=== PATIENT | female | born 1995 | race Caucasian/White ===

== ENCOUNTER → 2020-01-04 08:56 | Outpatient (BNVA) | payer MEDICAID, SELFPAY | PROVIDERS: Family Provider Family Medicine; Visit Provider Psychiatry & Neurology Psychiatry | DX: F32.4 Major depressive disorder, single episode, in partial remission (principal); F15.11 Other stimulant abuse, in remission | CPT/HCPCS: 99204 ==

== ENCOUNTER → 2020-02-03 08:34 | Outpatient (BNVA) | payer MEDICAID, SELFPAY | PROVIDERS: Family Provider Family Medicine; Visit Provider Nurse Practitioner Psychiatric/Mental Health | DX: F32.4 Major depressive disorder, single episode, in partial remission (principal) | CPT/HCPCS: 99212 ==

== ENCOUNTER → 2020-02-24 13:09 | Outpatient (BNVA) | payer MEDICAID, SELFPAY | PROVIDERS: Family Provider Family Medicine; Visit Provider Nurse Practitioner Psychiatric/Mental Health | DX: F15.11 Other stimulant abuse, in remission (principal); F32.5 Major depressive disorder, single episode, in full remission | CPT/HCPCS: 99212 ==

== ENCOUNTER 2020-02-28 05:54 | Inpatient (IN) | payer MEDICAID, SELFPAY ==
[2020-02-27] VITALS (9 sets, daily range): BP systolic 0–143; BP diastolic 0–75; PULSE 90–98; RESP 16; TEMP 36.8; BMI 32.2
[2020-02-27 21:05] LABS: Basophils # 0.1 10^3/uL (0.0-0.1); Basophils % 0.6 %; Eosinophils # 0.2 10^3/uL (0.0-0.8); Eosinophils % 1.7 %; Hematocrit 37.8 % (37.0-47.0); Hemoglobin 12.5 g/dL (11.5-15.3); Lymphocytes # 2.2 10^3/uL (0.8-4.8); Mean Corpuscular HGB Conc 33.1 g/dL (30.0-36.0); Mean Corpuscular Hemoglobin 29.7 pg (28.0-34.0); Mean Corpuscular Volume 89.8 fL (81-99); Mean Platelet Volume 11.6 fL (7.4-10.4); Monocytes # 0.7 10^3/uL (0.2-0.9); Monocytes % 7.8 %; Neutrophils # 6.3 10^3/uL (1.8-7.7); Neutrophils % 66.4 %; Nucleated Red Blood Cells % 0 %; Platelet Count 244 10^3/cmm (130-400); Red Blood Count 4.21 10^6/uL (4.1-5.3); White Blood Count 9.5 10^3/uL (4.0-10.0)
[2020-02-27] MEDS: miSOPROStol 100 mcg tablet 25 MCG VAGINAL (21:41)
[2020-02-28] VITALS (22 sets, daily range): BP systolic 113–154; BP diastolic 56–87; PULSE 70–103; RESP 16–18; TEMP 36.7–36.9; O2SAT 97–99
[2020-02-28] MEDS: oxytocin 30 UNIT/500 ML BAG IV (06:39)
[2020-02-28] MEDS: dextrose 5%-lactated ringers 1,000 ML 125 ML IV (06:40)
[2020-02-28 07:43] LABS: Amphetamines Screen Urine Negative (Negative); Barbiturates Screen Urine Negative (Negative); Benzodiazepines Screen Urine Negative (Negative); Cocaine Screen Urine Negative (Negative); Opiate Screen Urine Negative (Negative); PCP Screen Urine Negative (Negative); THC Screen Urine Negative (Negative)
[2020-02-28] MEDS: fentaNYL 50 mcg/mL INJ 2mL IVP (07:46)
--- NOTE | 2020-02-28 08:18 | P.PCNOB_ITS ---
Delivery Note: Date of delivery: February 28, 2020 Pre-Delivery Course: The patient was induced last night using Cytotec due to gestational hypertension. She was placed on Cytotec 25 mcg x 1. An amniotomy was performed this morning. She was placed on Pitocin. She progressed to complete without difficulty. She was GBS negative. Her glucose screen was negative. The remainder of her labs were within normal limits including negative drug screens multiple times. Delivery: DELIVERY: The patient progressed to complete without difficulty. She delivered a female with a weight of 7 pounds 7 ounces with Apgars of 7, 9. The baby was delivered from the SIMA position. The baby's mouth and nose were suctioned at the site of the perineum. The baby was then completely delivered and placed on the mother's abdomen. The cord was then clamped and cut. There was no nuchal cord. There was no meconium. The placenta and 3 vessel cord were delivered intact shortly thereafter. The perineum and vaginal vault were carefully examined. No lacerations were noted. Both the mother and the baby were in stable condition. A&P Assessment and plan (1) 39 weeks gestation of : Status: Acute (2) Gestational hypertension: Status: Acute (3) History of drug use: Status: Acute Coding Level of Care Code Acute Casino Cashier Manager for Chg Fwd Diagnoses 39 weeks gestation of Z3A.39 Gestational hypertension O13.9 History of drug use Z87.898
[2020-02-28] MEDS: docusate sodium 100 mg Capsule PO ×2 (10:08→18:08)
--- NOTE | 2020-02-28 10:40 | PC.NURSE ---
pt up to bathroom, void 200mL, gregg care performed, pad/gown changed. pt then ambulated to room 204 without difficulty. oriented to room/call light, proud parent pack and feeding sheet discussed.
[2020-02-28 20:51] LABS: Hematocrit 36.1 % (37.0-47.0); Hemoglobin 11.9 g/dL (11.5-15.3); Mean Corpuscular Hemoglobin 30.1 pg (28.0-34.0); Mean Corpuscular Volume 91.2 fL (81-99); Mean Platelet Volume 11.8 fL (7.4-10.4); Platelet Count 229 10^3/cmm (130-400); Red Blood Count 3.96 10^6/uL (4.1-5.3); Red Cell Distribution Width 14.1 % (12.1-15.1); White Blood Count 11.2 10^3/uL (4.0-10.0)
[2020-02-29 04:47] VITALS: BP 125/77; PULSE 70; RESP 18; TEMP 36.7
--- NOTE | 2020-02-29 08:11 | P.DS_ITS ---
Discharge Providers AGRICULTURAL AND FORESTRY SUPERVISOR Date of Admission: 02/28/20 05:54 Date of Discharge: 02/29/20 Attending Provider at Admission: Mahamed Hernandes MD Attending Provider at Discharge: Mahamed Hernandes MD Diagnoses at Discharge Discharge Diagnosis (1) 39 weeks gestation of : Status: Acute (2) Gestational hypertension: Status: Acute (3) History of drug use: Status: Acute Reason for Visit Reason for Visit: INDUCTION Hospital Course Hospital Course: The patient presented to the hospital for induction. She is given Cytotec 25 mcg x 1. An amniotomy was performed. Pitocin was started. She had an unremarkable delivery. Her course was also unremarkable. Her bleeding was reasonable. Her pain was well controlled. She did not breast- feed. Information Peripartum Data: Delivery Method: Vaginal Physical Exam Narrative: EXAM NARRATIVE: The patient is alert. She appears comfortable. Her heart has a regular rate and rhythm with no murmurs appreciated. Lungs are clear to auscultation bilaterally. Her fundus is firm and below the umbilicus. Discharge Data Data Completed and Pending: Labs from last 24 hours 02/28/20 20:20 WBC 11.2 H RBC 3.96 L Hgb 11.9 Hct 36.1 L MCV 91.2 MCH 30.1 MCHC 33.0 RDW 14.1 Plt Count 229 MPV 11.8 H Vitals: Last Vital Signs Temp 98.1 F 02/29/20 04:47 Pulse 70 02/29/20 04:47 Resp 18 02/29/20 04:47 BP 125/77 02/29/20 04:47 Pulse Ox 99 02/28/20 22:00 Discharge Plan Discharge Patient Disposition: Home, Self-Care Condition: Stable Prescriptions: New ibuprofen 800 mg Tablet 800 mg PO TID Qty: 45 RF: 0 Continued prenat.vits,erendira,[id number]-[id number] Tablet 1 tab PO DAILY RF: 0 Discharge Orders: Discharge Order (Routine); Ordered 02/29/20 Ordered By: Mahamed Hernandes Referrals: Mahamed Hernandes MD [Physician] - 6 Weeks Discharge Diet: Usual diet Discharge Activity: Limit activity as instructed Patient Instructions: Depression (GEN), Perineal Care (DC), Breast Care for the Non-breast Feeding Woman (GEN), Vaginal Delivery (DC), OB Discharge Report, OB Food/Drug Interaction Guide, OB Home Care Discharge Attestations AGRICULTURAL AND FORESTRY SUPERVISOR Time Spent in Discharge Care*: less than 30 min Coding Level of Care Code Acute Cooler Service Supervisor for Chg Fwd Diagnoses 39 weeks gestation of Z3A.39 Gestational hypertension O13.9 History of drug use Z87.898
[2020-02-29] MEDS: prenatal vitamin Capsule 1 CAP PO (08:44)
[2020-02-29] MEDS: docusate sodium 100 mg Capsule PO (08:44)
[2020-02-29 10:40] VITALS: BP 142/90; PULSE 65; RESP 16; TEMP 36.6; O2SAT 99
[2020-02-29 10:45] VITALS: BP 142/90; PULSE 65; RESP 16; TEMP 36.6; O2SAT 99
== END 2020-02-29 11:00 | disposition home or self-care (01) | DRG 807 ==
PROVIDERS: Admitting Provider Family Medicine; Family Provider Family Medicine; Visit Provider Family Medicine
DX: O13.4 Gestational [pregnancy-induced] hypertension without significant proteinuria, complicating childbirth (principal); Z37.0 Single live birth; Z3A.39 39 weeks gestation of pregnancy
CPT/HCPCS: 12345; 36415; 59025; 59409; 80306; 85025; 85027; 96375; J3010

== ENCOUNTER → 2020-05-01 09:59 | Outpatient (BNVA) | payer MEDICAID, SELFPAY | PROVIDERS: Family Provider Family Medicine; Visit Provider Nurse Practitioner Psychiatric/Mental Health | DX: F33.9 Major depressive disorder, recurrent, unspecified (principal); F41.1 Generalized anxiety disorder; F15.11 Other stimulant abuse, in remission | CPT/HCPCS: 99212 ==

== ENCOUNTER → 2020-05-25 08:39 | Outpatient (BNVA) | payer MEDICAID, SELFPAY | PROVIDERS: Family Provider Family Medicine; Visit Provider Nurse Practitioner Psychiatric/Mental Health | DX: F41.1 Generalized anxiety disorder (principal); F33.9 Major depressive disorder, recurrent, unspecified; F15.11 Other stimulant abuse, in remission; F33.1 Major depressive disorder, recurrent, moderate | CPT/HCPCS: 99212 ==

== ENCOUNTER → 2020-07-20 08:32 | Outpatient (BNVA) | payer MEDICAID, SELFPAY | PROVIDERS: Family Provider Family Medicine; Visit Provider Nurse Practitioner Psychiatric/Mental Health | DX: F33.9 Major depressive disorder, recurrent, unspecified (principal); F41.1 Generalized anxiety disorder; F15.11 Other stimulant abuse, in remission | CPT/HCPCS: G0463 ==

== ENCOUNTER → 2020-10-12 09:14 | Outpatient (BNVA) | payer BC, SELFPAY | PROVIDERS: Family Provider Family Medicine; Visit Provider Nurse Practitioner Psychiatric/Mental Health | DX: F41.1 Generalized anxiety disorder (principal); F15.11 Other stimulant abuse, in remission; F32.4 Major depressive disorder, single episode, in partial remission | CPT/HCPCS: 99213 ==

== ENCOUNTER 2023-08-29 09:18 | Emergency (ER) | payer BC, MEDICAID, SELFPAY ==
[2023-08-29 09:24] VITALS: BP 144/100; PULSE 140; RESP 18; TEMP 36.5; O2SAT 96; BMI 32.5
--- NOTE | 2023-08-29 09:34 | CTR_ITS ---
PROCEDURE INFORMATION: Exam: CT Chest With Contrast; Diagnostic Exam date and time: 08/29/2023 10:39 AM Age: 28 years old Clinical indication: Other: Neck and leg swelling; Patient HX: Post egd and colonoscopy yesterday; Additional info: Neck, leg crepitus post egd/colonoscopy, suspect mucosal tear TECHNIQUE: Imaging protocol: Diagnostic computed tomography of the chest with contrast. Radiation optimization: All CT scans at this facility use at least one of these dose optimization techniques: automated exposure control; mA and/or kV adjustment per patient size (includes targeted exams where dose is matched to clinical indication); or iterative reconstruction. Contrast material: OMNI 350; Contrast volume: 100 ml; Contrast route: INTRAVENOUS (IV); REPORTING DATA: Count of CT and Cardiac NM exams in prior 12 months: This patient has received 0 known CTs and 0 known cardiac nuclear medicine studies in the 12 months prior to the current study. COMPARISON: No relevant prior studies available. RADIATION DOSE METRICS: Total DLP (mGy-cm): 1139.56 FINDINGS: Thyroid: The bilateral thyroid lobes are unremarkable. Lungs: Left lower lobe calcified pulmonary parenchymal granuloma. Right lower lobe superior segment, right upper lobe medial anterior segment, medial superior and inferior segment lingular pulmonary subsegmental atelectasis. Right middle lobe partial/subsegmental atelectasis. Pleural spaces: No pneumothorax. Heart: No cardiomegaly. No pericardial effusion. Mediastinal space: Extensive pneumomediastinum, involving the anterior and middle mediastinum. Lymph nodes: No enlarged lymph nodes. Vasculature: Unremarkable. No aortic aneurysm. Bones/joints: No acute abnormality. No acute fracture. Soft tissues: Bilateral extensive supraclavicular/lower cervical soft tissue emphysema, extending into the right axilla, right periscapular soft tissues and right predominant bilateral posterior paraspinous muscular fascial planes. Also extensive right anterolateral lower chest wall soft tissue emphysema. PROCEDURE INFORMATION: Exam: CT Abdomen And Pelvis With Contrast Exam date and time: 08/29/2023 10:39 AM Age: 28 years old Clinical indication: Other: Neck and leg swelling; Patient HX: Post egd and colonoscopy yesterday; Additional info: Neck, leg crepitus post egd/colonoscopy, suspect mucosal tear TECHNIQUE: Imaging protocol: Computed tomography of the abdomen and pelvis with contrast. Radiation optimization: All CT scans at this facility use at least one of these dose optimization techniques: automated exposure control; mA and/or kV adjustment per patient size (includes targeted exams where dose is matched to clinical indication); or iterative reconstruction. Contrast material: OMNI 350; Contrast volume: 100 ml; Contrast route: INTRAVENOUS (IV); REPORTING DATA: Count of CT and Cardiac NM exams in prior 12 months: This patient has received 0 known CTs and 0 known cardiac nuclear medicine studies in the 12 months prior to the current study. COMPARISON: US OB >= 14 weeks fetus [id number] 11/29/2019 9:19 AM RADIATION DOSE METRICS: Total DLP (mGy-cm): 1139.56 FINDINGS: Liver: Normal. No mass. Gallbladder and bile ducts: Normal. No calcified stones. No ductal dilation. Pancreas: Normal. No ductal dilation. Spleen: Normal. No splenomegaly. Adrenal glands: Normal. No mass. Kidneys and ureters: Normal. No hydronephrosis. Stomach and bowel: Moderate wall thickening of the transverse, descending colon, mild wall thickening of the proximal sigmoid colon. Appendix: The vermiform appendix is normal. Intraperitoneal space: Moderately large pneumoperitoneum. Retroperitoneal space: Right predominant extensive abdominal and pelvic pneumoretroperitoneum. Vasculature: Unremarkable. No abdominal aortic aneurysm. Lymph nodes: No enlarged lymph nodes. Urinary bladder: Unremarkable as visualized. Reproductive: Unremarkable as visualized. Bones/joints: Posterior partial synostosis/pseudoarthrosis of the 7th intercostal space. Mid and lower thoracic spine multilevel mild degenerative disc disease. Chronic large left central L5-S1 disc protrusion with spondylosis. Soft tissues: Extensive right abdominal and pelvic wall soft tissue emphysema extending into the proximal right thigh. CT/CT chest abdpel w/*[id number] IMPRESSION: 1. Extensive pneumomediastinum. 2. Bilateral extensive soft tissue emphysema. 3. Please see the abdomen/pelvis CT report of the same date for additional findings. IMPRESSION: 1. Moderately large pneumoperitoneum. 2. Right predominant pneumoretroperitoneum. 3. Findings consistent with nonspecific colitis. Clinical correlation to determine the specific etiology is recommended. 4. Chronic large left central L5-S1 disc protrusion with spondylosis. 5. Please see the CT chest report of the same date for additional findings.
--- NOTE | 2023-08-29 09:57 | ED_ITS ---
HPI - General Adult 2 General: Chief complaint: General Medical Stated complaint: throat swelling post EGD sent by seven Time Seen by Provider: 08/29/23 09:37 History of Present Illness: Patient presents to the ER complaining of crepitus in her neck and her right lower extremity. These areas are painful. Patient's heart rate approximate [address] Hernandes did a EGD and colonoscopy on her yesterday. He said the EGD was uneventful and the colonoscopy showed severe ulcerative colitis where he took multiple biopsies. He felt that there may be a tear in the mucosal allowing the air to get in her abdomen and then perform subcu emphysema. Patient does state it is hard to take a big deep breath. She did not have any of these complaints yesterday they all started either throughout the night or this morning. Review of Systems 2 General: Reports: 10 or more systems reviewed and unremarkable except in HPI and below PFSH ED 2 PFSH: Medical History Major depressive disorder in partial remission Major depressive disorder, recurrent Major depressive disorder, single episode in full remission Social History Current gender identity: Female Physical Exam 2 Const: COMMON NORMALS: no acute distress, average body habitus, patient oriented x3, no limitations, healthy appearing, alert and well nourished HENMT: COMMON NORMALS: normocephalic, atraumatic, hearing grossly normal bilaterally, external ears normal, Normal external nose present, moist oral mucous membranes and oropharynx normal HEAD & SCALP: normocephalic and atraumatic NOSE: Normal external nose present EXTERNAL EAR: Yes external ears normal Neck/C-Spine: COMMON NORMALS: full ROM, no lymphadenopathy, supple, no meningeal signs, no JVD and Thyroid normal THYROID: Thyroid normal OTHER: Swelling noted bilateral neck. Chest: COMMONS NORMALS: normal inspection of the chest and normal palpation of entire chest wall Resp: COMMON NORMALS: normal respiratory effort, No retractions, No use of accessory muscles and clear to auscultation bilaterally AUSCULTATION: clear to auscultation bilaterally Cardio: COMMON NORMALS: no JVD, regular rhythm, S1 normal heart sound present, S2 normal heart sound present, No gallops present (Cardio), No clicks present (Cardio), No murmurs present (Cardio) and No rub (Cardio); negative for regular rate (Tachycardic) RATE: abnormal rate (Tachycardic) RHYTHM: regular rhythm HEART SOUNDS: S1 normal heart sound present and S2 normal heart sound present GI: COMMON NORMALS: Normal to inspection, nondistended, normoactive bowel sounds present, Soft to palpation, No hepatosplenomegaly present and no masses; negative for non-tender (Mildly diffusely tender) PALPATION: Yes Soft to palpation and Yes No hepatosplenomegaly present Extremity: NARRATIVE EXTREMITY EXAM: Painful to palpate right lower extremity calf region Neuro: COMMON NORMALS: patient oriented x3 SENSORIUM/ORIENTATION: Yes alert MENINGEAL SIGNS: Yes no meningeal signs Course 2 Vital Signs: Vital signs: Vital Signs Temperature 97.7 F 08/29/23 09:24 Pulse Rate 107 H 08/29/23 13:09 Respiratory Rate 18 08/29/23 13:09 Blood Pressure 125/85 08/29/23 13:09 Pulse Oximetry 96 08/29/23 13:09 Oxygen Delivery Me thod Room Air 08/29/23 13:09 MDM - General Adult Medical Decision Making Patient had an EGD and colonoscopy yesterday. Started swelling throughout the night and her abdomen legs and neck. Is thought that they may had a perforation. Patient had lab work done that was essentially benign except elevated procalcitonin 1.84. Patient had a contrasted CT scan of her chest abdomen pelvis that showed extensive pneumomediastinum bilateral extensive soft tissue review emphysema large pneumoperitoneum right predominant pneumoretroperitoneum. Dr. Domingo Curiel was consulted who said this would require extensive surgery and patient would need to go to a university type setting or tertiary level care facility. Patient [facility] The neither place had beds and said we could be put on a wait list. Then we called [facility] we got the same answer. [facility] but was called and talked to the transfer center [facility] we can do ER to ER transfer. The ER Dr Coleman who accepted in transfer. We will start the patient on Cipro and Flagyl because she is allergic to ceftriaxone. Will give the patient fentanyl for pain control.. Failure to general surgeon on-call at [facility] Dr Cortes spoke with me about the extensive pneumoperitoneum and the possible duodenal perforation and thought she may need a Whipple type procedure which they are not able to perform at this time so they gave his recommendations for transfer. Dr. Leyva at [facility] excepted in transfer patient be transferred there. Differential Diagnosis Possible submucosal tear to colon allowing for subcu emphysema Medical Records I reviewed the patient's medical records. Lab Data I reviewed the patient's lab results. 08/29/23 10:45 08/29/23 10:45 Radiology Impressions Chest/Abdomen/Pelvis CT 08/29/23 09:34 IMPRESSION: 1. Extensive pneumomediastinum. 2. Bilateral extensive soft tissue emphysema. 3. Please see the abdomen/pelvis CT report of the same date for additional findings. IMPRESSION: 1. Moderately large pneumoperitoneum. 2. Right predominant pneumoretroperitoneum. 3. Findings consistent with nonspecific colitis. Clinical correlation to determine the specific etiology is recommended. 4. Chronic large left central L5-S1 disc protrusion with spondylosis. 5. Please see the CT chest report of the same date for additional findings. ADDENDUM: 08/29/23 1120 THIS REPORT CONTAINS FINDINGS THAT MAY BE CRITICAL TO PATIENT CARE. The findings were verbally communicated by me to Dr. Darron Hernandez via telephone conference at 11:18 AM PEDIATRIC PHYSICIAN ASSISTANT on 08/29/2023. The findings were acknowledged and understood. Laboratory Results WBC 11.12 10^3/uL (3.29-11.43) 08/29/23 10:45 RBC 5.26 10^6/uL (3.85-5.65) 08/29/23 10:45 Hgb 13.30 g/dL (11.27-16.99) 08/29/23 10:45 Hct 41.8 % (36-47) 08/29/23 10:45 MCV 79.5 fl (85-98) L 08/29/23 10:45 MCH 25.3 pg (27-33) L 08/29/23 10:45 MCHC 31.8 g/dL (30-55) 08/29/23 10:45 RDW 14.6 % (12.1-15.1) 08/29/23 10:45 Plt Count 537 10^3/cmm (157-399) H 08/29/23 10:45 MPV 10.7 fL (7.4-10.4) H 08/29/23 10:45 Neut % (Auto) 71.7 % 08/29/23 10:45 Lymph % (Auto) 16.1 % 08/29/23 10:45 Yancey % (Auto) 6.6 % 08/29/23 10:45 Eos % (Auto) 4.8 % 08/29/23 10:45 Baso % (Auto) 0.5 % 08/29/23 10:45 Neut # (Auto) 7.98 10^3/uL (1.8-7.7) H 08/29/23 10:45 Lymph # (Auto) 1.8 10^3/uL (0.8-4.8) 08/29/23 10:45 Yancey # (Auto) 0.7 10^3/uL (0.2-0.9) 08/29/23 10:45 Eos # (Auto) 0.5 10^3/uL (0.0-0.8) 08/29/23 10:45 Baso # (Auto) 0.1 10^3/uL (0.0-0.1) 08/29/23 10:45 Nucleated RBC % (auto) 0 % 08/29/23 10:45 Nucleated RBCs # 0.0 /100WBC 08/29/23 10:45 Sodium 135 mmol/L (136-145) L 08/29/23 10:45 Potassium 3.5 mmol/L (3.5-5.1) 08/29/23 10:45 Chloride 102 mmol/L (98-107) 08/29/23 10:45 Carbon Dioxide 20 mmol/L (22-29) L 08/29/23 10:45 Anion Gap 16.5 (5-19) 08/29/23 10:45 BUN 11 mg/dL (6-20) 08/29/23 10:45 Creatinine 0.6 mg/dL (0.5-0.9) 08/29/23 10:45 GFR Calculation 118.2 mL/min (90-130) 08/29/23 10:45 Glucose 112 mg/dL (65-115) 08/29/23 10:45 Calculated Osmolality 280 mOsm/kg (285-295) L 08/29/23 10:45 Lactic Acid 1.1 mmol/L (0.5-2.2) 08/29/23 10:45 Calcium 9.5 mg/dL (8.5-10.5) 08/29/23 10:45 Total Bilirubin 0.4 mg/dL (0.15-1.2) 08/29/23 10:45 AST 13 U/L (0-32) 08/29/23 10:45 ALT 15 U/L (0-33) 08/29/23 10:45 Alkaline Phosphatase 124 U/L (35-105) H 08/29/23 10:45 Total Protein 7.6 g/dL (6.6-8.7) 08/29/23 10:45 Albumin 4.0 g/dL (3.5-5.2) 08/29/23 10:45 Globulin 3.6 g/dL (1.3-4.6) 08/29/23 10:45 Procalcitonin 1.84 ng/mL (0-0.5) H 08/29/23 10:45 Urine Color Yellow (Yellow) 08/29/23 09:38 Urine Appearance Sl hazy (CLEAR) A 08/29/23 09:38 Urine pH 5 (5-7) 08/29/23 09:38 Ur Specific [place] 1.020 (1.005-1.030) 08/29/23 09:38 Urine Protein Neg (Negative) 08/29/23 09:38 Urine Glucose (UA) Norm (Normal) 08/29/23 09:38 Urine Ketones 1+ (Negative) H 08/29/23 09:38 Urine Blood Neg (Negative) 08/29/23 09:38 Urine Nitrate Negative (Negative) 08/29/23 09:38 Urine Bilirubin 1+ (Negative) H 08/29/23 09:38 Urine Urobilinogen 1 mg/dL (Negative) H 08/29/23 09:38 Ur Leukocyte Esterase Negative (Negative) 08/29/23 09:38 Urine RBC 0-4 /hpf (0-2) H 08/29/23 09:38 Urine WBC 55-80 /hpf (0-5) H 08/29/23 09:38 Ur Squamous Epith Cells 25-40 /hpf (0-5) H 08/29/23 09:38 Amorphous Sediment Not Reportable 08/29/23 09:38 Urine Bacteria Trace /hpf (NONE) 08/29/23 09:38 Urine Mucus 2+ /hpf 08/29/23 09:38 All radiology interpretation(s) finalized by discharge Discharge Plan Discharge Patient Disposition: Xfer Short-Term Hosp Clinical Impression: Pneumoperitoneum, Pneumoretroperitoneum, Pneumomediastinum, Subcutaneous emphysema, Intestine, perforation Condition: Stable Referrals: Mahamed Hernandes MD [Primary Care Provider] - Coding Level of Care Code ED Promotions Executive Producer for Estephania Robb
[2023-08-29 10:25] LABS: Blood Urine Neg (Negative); Glucose Urine UA Norm (Normal); Ketones Urine 1+ (Negative); Nitrate Urine Negative (Negative); Protein Urine Neg (Negative); Urine Appearance SL Hazy (CLEAR); Urine Color Yellow (Yellow); pH Urine 5 (5-7)
[2023-08-29 10:26] LABS: Add Urine Culture? No; Add Urine Microscopic? YES; Bacteria Urine TRACE /hpf; Bilirubin Urine 1+ (Negative); Leukocyte Esterase Urine Negative (Negative); Mucus Urine 2+ /hpf; RBC Urine 0-4 /hpf (0-2); Squamous Epithelial Cell Urine 25-40 /hpf (0-5); Urobilinogen Urine 1 mg/dL (Negative); WBC Urine 55-80 /hpf (0-5)
[2023-08-29] MEDS: iohexol 350 mg/mL 500 mL Btl (per mL) IV (10:47)
[2023-08-29 11:05] LABS: Basophils # 0.1 10^3/uL (0.0-0.1); Basophils % 0.5 %; Eosinophils # 0.5 10^3/uL (0.0-0.8); Eosinophils % 4.8 %; Hematocrit 41.8 % (36-47); Lymphocytes # 1.8 10^3/uL (0.8-4.8); Lymphocytes % 16.1 %; Mean Corpuscular HGB Conc 31.8 g/dL (30-55); Mean Corpuscular Hemoglobin 25.3 pg (27-33); Mean Corpuscular Volume 79.5 fl (85-98); Mean Platelet Volume 10.7 fL (7.4-10.4); Monocytes # 0.7 10^3/uL (0.2-0.9); Monocytes % 6.6 %; Neutrophils # 7.98 10^3/uL (1.8-7.7); Neutrophils % 71.7 %; Nucleated Red Blood Cells % 0 %; Platelet Count 537 10^3/cmm (157-399); Red Blood Count 5.26 10^6/uL (3.85-5.65); Red Cell Distribution Width 14.6 % (12.1-15.1); White Blood Count 11.12 10^3/uL (3.29-11.43)
[2023-08-29 11:17] LABS: Alanine Aminotransferase 15 U/L (0-33); Alkaline Phosphatase 124 U/L (35-105); Anion Gap 16.5 (5-19); Aspartate Amino Transferase 13 U/L (0-32); Blood Urea Nitrogen 11 mg/dL (6-20); Calcium 9.5 mg/dL (8.5-10.5); Carbon Dioxide 20 mmol/L (22-29); Chloride 102 mmol/L (98-107); Globulin 3.6 g/dL (1.3-4.6); Glomerular Filtration Rate 118.2 mL/min (90-130); Glucose 112 mg/dL (65-115); Lactic Sepsis W/Reflex 1.1 mmol/L (0.5-2.2); Osmolality Calculated 280 mOsm/kg (285-295); Potassium 3.5 mmol/L (3.5-5.1); Sodium 135 mmol/L (136-145); Total Bilirubin 0.4 mg/dL (0.15-1.2); Total Protein 7.6 g/dL (6.6-8.7)
[2023-08-29 11:24] LABS: Procalcitonin 1.84 ng/mL (0-0.5)
[2023-08-29 11:49] VITALS: BP 133/87; PULSE 100; RESP 24; O2SAT 95
[2023-08-29] MEDS: ciprofloxacin 400 MG/200 ML PREMIX 200 MG IV (12:09)
[2023-08-29] MEDS: ondansetron 2 mg/ML SDV 2 mL 4 MG IVP (12:09)
[2023-08-29] MEDS: fentaNYL 50 mcg/mL INJ 2mL IVP (12:09)
[2023-08-29 13:09] VITALS: BP 125/85; PULSE 107; RESP 18; O2SAT 96
[2023-08-29] MEDS: metroNIDAZOLE IV 500 MG/100 ML PREMIX 100 MG IV (13:24)
[2023-08-29 13:33] VITALS: BP 119/81; PULSE 101; RESP 23; O2SAT 98
== END 2023-08-29 13:51 | disposition short-term general hospital (02) ==
PROVIDERS: Emergency Provider Emergency Medicine; PCP Family Medicine
DX: J98.2 Interstitial emphysema (principal); T79.7XXA Traumatic subcutaneous emphysema, initial encounter; K63.1 Perforation of intestine (nontraumatic); Y83.8 Other surgical procedures as the cause of abnormal reaction of the patient, or of later complication, without mention of misadventure at the time of the procedure
CPT/HCPCS: 71260; 74177; 80053; 81001; 83605; 84145; 85025; 96365; 96375; 99285; J0744; J2405; J3010; J3490; Q9967

== ENCOUNTER 2023-10-21 10:45 | Emergency (ER) | payer BC, MEDICAID, SELFPAY ==
[2023-10-21 10:49] VITALS: BP 152/104; PULSE 79; RESP 16; TEMP 36.4; O2SAT 100; BMI 34.5
--- NOTE | 2023-10-21 10:55 | CT_ITS ---
WS: [id number] CT ABDOMEN PELVIS TECHNIQUE: Contrast-enhanced CT of the abdomen and pelvis with coronal and sagittal reformatted image s. CLINICAL INFORMATION: abd pain COMPARISON: CT 08/29/2023 DLP: 872.[address] scans at [facility] use at least one of these dose optimization techniques: automated e xposure control; mA and/or kV adjustment per patient size (includes targeted exams where dose is matc hed to clinical indication); or iterative reconstruction. FINDINGS: Previously described colitis has significantly improved and nearly resolved. Mild residual wall thickening and enhancement involving the splenic flexure LEFT colon and proximal sigmoid colon. Previously described pneumoperitoneum has resolved. Lung bases are well aerated. Slight bibasilar atelectases. Calcified granuloma LEFT lower lobe. Mild diffuse fatty filtration of the liver. Normal spleen. Normal GE junction. Normal portal vein and sple marci vein. Adrenal glands are normal. Normal caliber abdominal aorta. Celiac and SMA are patent. Adren al glands are normal. Normal renal parenchymal enhancement. No hydronephrosis. Normal sigmoid colon. No evidence of high-grade small large bowel obstruction. Mild hepatic flexure a nd proximal transverse colon constipation. Normal appendix in the RIGHT lower quadrant. Tiny fat-cont aining umbilical hernia. Previously described pneumoperitoneum has resolved. Mild lumbar curve. Disc osteophyte protrusion L5-S1 similar to previous. Small central protrusion L4-5. Retroverted and retro flexed uterus. IMPRESSION: 1. Previously described extensive pneumoperitoneum has resolved. 2. Mild residual bowel wall thickening and enhancement along the LEFT colon and proximal sigmoid col on compatible with mild residual colitis although significantly improved compared to previous 023. 3. Mild diffuse fatty infiltration of the liver. 4. Mild hepatic flexure constipation. 5. Normal appendix in the RIGHT lower quadrant. 6. No other significant changes compared to previous.
--- NOTE | 2023-10-21 10:55 | W.ED.ABDPA2 ---
HPI - Abdominal Pain General: Chief Complaint: Abdominal Pain Stated Complaint: sent by jesse verduzco pain Time Seen by Provider: 10/21/23 10:55 History of Present Illness: 28-year-old female presents to the emergency department with complaints of left upper quadrant abdominal pain. She states she was seen by her primary care provider earlier today and advised to come to the emergency department to be evaluated. The patient started having abdominal discomfort approximately 3 days ago and has continued. She states that in August 2023 she had a colonoscopy and post colonoscopy appeared to have a perforation which required transfer to [facility] for complete ex lap. Patient states that they never found the source of the free air that was in her abdomen but she has been doing well since that time. She states she has not had any hematemesis or hematochezia she states her abdominal discomfort is a 3 out of 10 at present she states it is intermittent and is located in the left upper quadrant and radiates around to her back. Associated Symptoms: Reports nausea; Denies diarrhea and vomiting Review of Systems General: Reports: 10 or more systems reviewed and unremarkable except in HPI and below GI: Reports: abdominal pain and nausea; Denies: vomiting or diarrhea PFSH ED PFSH: Medical History Major depressive disorder in partial remission Major depressive disorder, recurrent Major depressive disorder, single episode in full remission Social History Current gender identity: Female Physical Exam Const: COMMON NORMALS: no acute distress, patient oriented x3 and alert HENMT: COMMON NORMALS: normocephalic, atraumatic, Normal external nose present and moist oral mucous membranes HEAD & SCALP: normocephalic and atraumatic NOSE: Normal external nose present Eye: COMMON NORMALS: Equal, round and reactive pupils present and EOMs intact bilaterally PUPIL: Yes Equal, round and reactive pupils present Neck/C-Spine: COMMON NORMALS: full ROM and supple Resp: COMMON NORMALS: normal respiratory effort and clear to auscultation bilaterally AUSCULTATION: clear to auscultation bilaterally Cardio: COMMON NORMALS: regular rate, regular rhythm, S1 normal heart sound present and S2 normal heart sound present RATE: regular rate RHYTHM: regular rhythm HEART SOUNDS: S1 normal heart sound present and S2 normal heart sound present GI: COMMON NORMALS: Soft to palpation INSPECTION: Yes normal to inspection AUSCULTATION: Yes normoactive bowel sounds PALPATION: Yes Soft to palpation and Yes Tenderness to palpation present (GI) Details: LUQ : COMMON NORMALS: Yes no CVA tenderness BLADDER/KIDNEY EXAM: Yes no CVA tenderness Back/Pelvis: COMMON NORMALS: no CVA tenderness, thoracic and lumbar spine normal to inspection and thoraco-lumbar ROM normal Neuro: COMMON NORMALS: patient oriented x3 SENSORIUM/ORIENTATION: Yes alert Psych: COMMON NORMALS: mental status grossly normal, Normal thought process present and cooperative THOUGHT PROCESS: Normal thought process present Skin: COMMON NORMALS: no rashes or lesions noted and turgor normal GENERAL SKIN EXAM: no rashes or lesions noted and turgor normal Course Vital Signs: Vital signs: Vital Signs Temperature 97.5 F L 10/21/23 10:49 Pulse Rate 70 10/21/23 14:37 Respiratory Rate 16 10/21/23 14:07 Blood Pressure 129/98 10/21/23 14:37 Pulse Oximetry 97 10/21/23 14:37 Oxygen Delivery Me thod Room Air 10/21/23 10:49 MDM - Abdominal Pain Medical Decision Making Physical exam completed and documented, I will obtain laboratory evaluation to include a CBC, CMP, lipase, urinalysis, and a CT scan of the patient's abdomen pelvis to evaluate for possible differential diagnosis of bowel obstruction, incarcerated hernia, abdominal wall strain, abdominal wall hematoma, constipation. I will provide the patient IV access and IV fluid as well as a CT scan abdomen pelvis with contrast for evaluation for possible colitis, acute appendicitis, diverticulitis. Medical Records I reviewed the patient's medical records. Lab Data I reviewed the patient's lab results. 10/21/23 12:25 10/21/23 12:25 Labs/Radiology: Laboratory Results WBC 10.26 10^3/uL (3.29-11.43) 10/21/23 12: RBC 5.01 10^6/uL (3.85-5.65) 10/21/23 12: Hgb 14.20 g/dL (11.27-16.99) 10/21/23 12: Hct 45.2 % (36-47) 10/21/23 12: MCV 90.2 fl (85-98) 10/21/23 12:25 MCH 28.3 pg (27-33) 10/21/23 12:25 MCHC 31.4 g/dL (30-55) 10/21/23 12:25 RDW 21.2 % (12.1-15.1) H 10/21/23 12:25 Plt Count 361 10^3/cmm (157-399) 10/21/23 12:25 MPV 10.1 fL (7.4-10.4) 10/21/23 12:25 Neut % (Auto) 42.0 % 10/21/23 12:25 Lymph % (Auto) 49.5 % 10/21/23 12:25 [place] % (Auto) 6.2 % 10/21/23 12: Eos % (Auto) 1.2 % 10/21/23 12:25 Baso % (Auto) 0.8 % 10/21/23 12: Neut # (Auto) 4.31 10^3/uL (1.8-7.7) 10/21/23 12:25 Lymph # (Auto) 5.1 10^3/uL (0.8-4.8) H 10/21/23 12:25 [place] # (Auto) 0.6 10^3/uL (0.2-0.9) 10/21/23 12:25 Eos # (Auto) 0.1 10^3/uL (0.0-0.8) 10/21/23 12:25 Baso # (Auto) 0.1 10^3/uL (0.0-0.1) 10/21/23 12:25 Nucleated RBC % (auto) 0 % 10/21/23 12: Nucleated RBCs # 0.0 /100WBC 10/21/23 12:25 Sodium 140 mmol/L (136-145) 10/21/23 12:25 Potassium 4.0 mmol/L (3.5-5.1) 10/21/23 12:25 Chloride 104 mmol/L (98-107) 10/21/23 12:25 Carbon Dioxide 23 mmol/L (22-29) 10/21/23 12:25 Anion Gap 17.0 (5-19) 10/21/23 12:25 BUN 14 mg/dL (6-20) 10/21/23 12:25 Creatinine 0.6 mg/dL (0.5-0.9) 10/21/23 12:25 GFR Calculation 118.2 mL/min (90-130) 10/21/23 12:25 Glucose 84 mg/dL (65-115) 10/21/23 12:25 Calculated Osmolality 290 mOsm/kg (285-295) 10/21/23 12:25 Calcium 9.3 mg/dL (8.5-10.5) 10/21/23 12:25 Total Bilirubin 0.3 mg/dL (0.15-1.2) 10/21/23 12:25 AST 8 U/L (0-32) 10/21/23 12:25 ALT 12 U/L (0-33) 10/21/23 12:25 Alkaline Phosphatase 62 U/L (35-105) 10/21/23 12:25 Total Protein 7.6 g/dL (6.6-8.7) 10/21/23 12:25 Albumin 4.4 g/dL (3.5-5.2) 10/21/23 12:25 Globulin 3.2 g/dL (1.3-4.6) 10/21/23 12:25 Lipase 25 U/L (13-60) 10/21/23 12:25 HCG, Qual Negative (Negative) 10/21/23 11:33 Urine Color Yellow (Yellow) 10/21/23 11:33 Urine Appearance Clear (CLEAR) 10/21/23 11:33 Urine pH 5 (5-7) 10/21/23 11:33 Ur Specific [place] 1.025 (1.005-1.030) 10/21/23 11:33 Urine Protein Neg (Negative) 10/21/23 11:33 Urine Glucose (UA) Norm (Normal) 10/21/23 11:33 Urine Ketones 1+ (Negative) H 10/21/23 11:33 Urine Blood Neg (Negative) 10/21/23 11:33 Urine Nitrate Negative (Negative) 10/21/23 11:33 Urine Bilirubin Neg (Negative) 10/21/23 11:33 Urine Urobilinogen Norm mg/dL (Negative) 10/21/23 11:33 Ur Leukocyte Esterase Negative (Negative) 10/21/23 11:33 All radiology interpretation(s) finalized by discharge Discharge Plan Discharge Patient Disposition: Home Clinical Impression: Colitis Condition: Stable Prescriptions: New Flagyl 375 mg capsule 375 mg PO Q12H 10 Days Qty: 20 0RF hydrocodone-acetaminophen 5-325 mg tablet 1 tab PO Q8H PRN (Reason: pain) Qty: 14 0RF ondansetron HCl 4 mg tablet 4 mg PO Q12H 5 Days Qty: 10 0RF No Action prednisone 10 mg Tablet See Rx Instructions .ROUTE .COMPLEX Rx Instructions: TAPER DOSE-20MG PO DAILY FOR 14 DAYS THEN 10MG PO DAILY FOR 14 DAYS (TAKING 10MG ON 10/21/23) Iron Folate Plus 125 mg iron- 1 mg Capsule 1 cap PO QAM Humira Starter Kit See Rx Instructions .ROUTE .COMPLEX Rx Instructions: DIRECTED Discharge Orders: Discharge ED (Routine); Ordered 10/21/23 Ordered By: Jeff Corbett Referrals: Mahamed Hernandes MD [Primary Care Provider] - Discharge Diet: Usual diet Discharge Activity: Resume usual activity Patient Instructions: Opioid Safety, Pain Management Coding Level of Care Code ED Laboratory Animal Facility Supervisor for Estephania Robb
[2023-10-21 11:35] VITALS: BP 152/108; PULSE 72; O2SAT 100
[2023-10-21 11:48] LABS: Add Urine Microscopic? NO; Charge for UA Resulting for Rev
[2023-10-21 11:56] LABS: Bilirubin Urine Neg (Negative); Blood Urine Neg (Negative); Glucose Urine UA Norm (Normal); HCG Qualitative Urine. Negative (Negative); Ketones Urine 1+ (Negative); Leukocyte Esterase Urine Negative (Negative); Nitrate Urine Negative (Negative); Protein Urine Neg (Negative); Specific Gravity, Urine 1.025 (1.005-1.030); Urine Appearance Clear (CLEAR); Urine Color Yellow (Yellow); Urobilinogen Urine Norm (Negative); pH Urine 5 (5-7)
[2023-10-21 12:31] LABS: Basophils # 0.1 10^3/uL (0.0-0.1); Basophils % 0.8 %; Eosinophils # 0.1 10^3/uL (0.0-0.8); Eosinophils % 1.2 %; Hematocrit 45.2 % (36-47); Lymphocytes # 5.1 10^3/uL (0.8-4.8); Lymphocytes % 49.5 %; Mean Corpuscular HGB Conc 31.4 g/dL (30-55); Mean Corpuscular Hemoglobin 28.3 pg (27-33); Mean Corpuscular Volume 90.2 fl (85-98); Mean Platelet Volume 10.1 fL (7.4-10.4); Monocytes # 0.6 10^3/uL (0.2-0.9); Monocytes % 6.2 %; Neutrophils # 4.31 10^3/uL (1.8-7.7); Nucleated Red Blood Cells % 0 %; Platelet Count 361 10^3/cmm (157-399); Red Blood Count 5.01 10^6/uL (3.85-5.65); Red Cell Distribution Width 21.2 % (12.1-15.1); White Blood Count 10.26 10^3/uL (3.29-11.43)
[2023-10-21 12:39] VITALS: BP 141/80; PULSE 78; RESP 18; O2SAT 96
[2023-10-21] MEDS: iohexol 350 mg/mL 500 mL Btl (per mL) IV (12:46)
[2023-10-21 12:49] LABS: Alanine Aminotransferase 12 U/L (0-33); Albumin Level 4.4 g/dL (3.5-5.2); Alkaline Phosphatase 62 U/L (35-105); Aspartate Amino Transferase 8 U/L (0-32); Blood Urea Nitrogen 14 mg/dL (6-20); Calcium 9.3 mg/dL (8.5-10.5); Carbon Dioxide 23 mmol/L (22-29); Chloride 104 mmol/L (98-107); Globulin 3.2 g/dL (1.3-4.6); Glomerular Filtration Rate 118.2 mL/min (90-130); Glucose 84 mg/dL (65-115); Lipase 25 U/L (13-60); Osmolality Calculated 290 mOsm/kg (285-295); Slide Review Slide Review Perform; Sodium 140 mmol/L (136-145); Total Bilirubin 0.3 mg/dL (0.15-1.2); Total Protein 7.6 g/dL (6.6-8.7)
[2023-10-21] MEDS: ondansetron 2 mg/ML SDV 2 mL 4 MG IVP (14:05)
[2023-10-21 14:07] VITALS: RESP 16; O2SAT 99
[2023-10-21] MEDS: fentaNYL 50 mcg/mL INJ 2mL 25 MCG IVP (14:07)
[2023-10-21 14:17] VITALS: BP 132/83; PULSE 82; O2SAT 95
[2023-10-21 14:37] VITALS: BP 129/98; PULSE 70; O2SAT 97
== END 2023-10-21 14:37 | disposition home or self-care (01) ==
PROVIDERS: Emergency Provider Internal Medicine; PCP Family Medicine
DX: K52.9 Noninfective gastroenteritis and colitis, unspecified (principal)
CPT/HCPCS: 74177; 80053; 81003; 81025; 83690; 85025; 96374; 96375; 99285; J2405; J3010; Q9967

== ENCOUNTER 2024-05-25 14:16 | Oncology outpatient (recurring) (ONCR) | payer BC, MEDICAID, SELFPAY ==
[2024-05-25] MEDS: vedolizumab 300 MG in sodium chloride 0.9% 250 ML 500 MG IV (15:00)
[2024-05-25 15:04] VITALS: BP 115/78; PULSE 85; RESP 16; TEMP 37.1; O2SAT 96
--- NOTE | 2024-05-25 15:28 | PC.NURSE ---
Called [facility], spoke with nurse Jose Daniel. Clarified orders for pt to receive initial dose of Entyvio weeks 0,2,6 then Q8 weeks. She will fax new order for additional doses.
== END 2024-05-31 23:59 | disposition home or self-care (01) ==
PROVIDERS: PCP Family Medicine; Visit Provider Physician Assistant
DX: Z79.620 Long term (current) use of immunosuppressive biologic (principal); K51.811 Other ulcerative colitis with rectal bleeding
CPT/HCPCS: 96413; J3380; J7050

== ENCOUNTER 2024-07-20 07:58 | Oncology outpatient (recurring) (ONCR) | payer BC, MEDICAID, SELFPAY ==
[2024-07-20 08:19] VITALS: BP 124/79; PULSE 73; RESP 16; TEMP 36.6; O2SAT 98
[2024-07-20] MEDS: vedolizumab 300 MG in sodium chloride 0.9% 250 ML 500 MG IV (09:16)
[2024-07-20 10:30] VITALS: BP 132/82; PULSE 78; RESP 17; TEMP 36.4; O2SAT 98
== END 2024-07-31 23:59 | disposition home or self-care (01) ==
PROVIDERS: PCP Family Medicine; Visit Provider Physician Assistant
DX: Z79.899 Other long term (current) drug therapy (principal); K51.911 Ulcerative colitis, unspecified with rectal bleeding
CPT/HCPCS: 96413; J3380; J7050

== ENCOUNTER 2025-01-14 13:40 | Outpatient (CLI) | payer BC, MEDICAID, SELFPAY ==
--- NOTE | 2025-01-14 13:52 | XR_ITS ---
WS: [id number] DEXA (DUAL ENERGY X-RAY ABSORPTIOMETRY) Bone mineral density was performed using a [employer] machine. 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 COMPARISON: None available. Lumbar spine BMD (L1-L4): 1.198 g/cm2 T score: 0.1 Z score: -0.8 Total hip BMD: Left: 1.094 g/cm2. T score: 0.7 Z score: 0.1 Right: 1.080 g/cm2. T score: 0.6 Z score: 0.0 XR/XR DEXA axial skeleton* [id number] IMPRESSION: NORMAL BONE MINERAL DENSITY based upon the WHO classification for females.
== END 2025-01-14 13:41 | disposition home or self-care (01) ==
PROVIDERS: PCP Family Medicine; Visit Provider Physician Assistant
DX: K50.811 Crohn's disease of both small and large intestine with rectal bleeding (principal); Z91.89 Other specified personal risk factors, not elsewhere classified; Z79.899 Other long term (current) drug therapy
CPT/HCPCS: 77080